=== PATIENT | male | born 1955 | race Caucasian/White ===

== ENCOUNTER 2018-03-02 10:54 | Inpatient (IN) | payer MEDICARE ==
--- NOTE | 2018-03-02 11:02 | ED Physician Chart ---
ED Chief Complaint/HPI - Patient Information Date Seen:: 03/02/18 Time Seen:: 10:40 Chief Complaint:: Poor Oral Intake History of Present Illness:: onset x 3 days of poor oral intake and failure to thrive; no report of trauma, H /As, S/T, neck pain, C/P, SOB, Abd. Pain, A/N/V/D/C, fever, chills, or urinary s /s Historian:: Patient, Family Member Review:: Nurse's Note Reviewed ED Review of Systems - Review of Systems General/Constitutional: No fever, No chills, No weight loss, Weakness, No diaphoresis, No edema, No loss of appetite Skin: No skin lesions, No rash, No bruising Head: No headache, No light-headedness Eyes: No loss of vision, No pain, No diplopia ENT: No earache, No nasal drainage, No sore throat, No tinnitus Neck: No neck pain, No swelling, No thyromegaly, No stiffness, No mass noted Cardio Vascular: No chest pain, No palpitations, No PND, No orthopnea, No edema Pulmonary: No SOB, No cough, No sputum, No wheezing GI: No nausea, No vomiting, No diarrhea, No pain, No melena, No hematochezia, No constipation, No hematemesis G/U: No dysuria, No frequency, No hematuria, No nacturia Musculoskeletal: No bone or joint pain, No back pain, No muscle pain Endocrine: No polyuria, No polydipsia Psychiatric: No prior psych history, No depression, No anxiety, No suicidal ideation, No homicidal ideation, No auditory hallucination, No visual hallucination Hematopoietic: No bruising, No lymphadenopathy Allergic/Immuno: No urticaria, No angioedema Neurological: No syncope, No focal symptoms, Weakness, No paresthesia, No headache, No seizure, No dizziness, Confusion, No vertigo ED Past Medical History - Past Medical History Obtainable: Yes Past Medical History: HTN, Dyslipidemia, Arthritis, Dementia Family History: HTN Social History: Non Smoker, No Alcohol, No Drug Use, Surgical History: Appendectomy, Cholecystectomy, other (Head Shunt) Psychiatricy History: Dementia Medication: Reviewed ED Physical Exam - Physical Examination General/Constitutional: Awake, Well-developed, well-nourished, Alert, No distress, GCS 15, Non-toxic appearing, Ambulatory Head: Atraumatic Eyes: Lids, conjuctiva normal, PERRL, EOMI Skin: Nl inspection, No rash, No skin lesions, No ecchymosis, No lymphadenopathy Other Skin comments:: Poor Turgor with dry MM ENMT: External ears, nose nl, TM canals nl, Nasal exam nl, Lips, teeth, gums nl , Oropharynx nl, Tonsils nl Neck: Nontender, Full ROM w/o pain, No JVD, No nuchal rigidity, No bruit, No mass, No stridor Respiratory: Nl effort/Exclusion, Clear to Auscultation, No Wheeze/Rhonchi/Rales Cardio Vascular: RRR, No murmur, gallop, rubs, NL S1 S2, Carotid/Femoral/Distal pulses equal bilaterally GI: No tenderness/rebounding/guarding, No organomegaly, No hernia, Normal BS's, Nondistended, No mass/bruits, No McBurney tenderness : No CVA tenderness Extremities: No tenderness or effusion, Full ROM, normal strength in all extremities, No edema, Normal digits & nails Neuro/Psych: DTR's symmetric, Normal sensory exam, Normal motor strength, Judgement/insight normal, Mood normal, Normal gait, No focal deficits Other Neuro/Psych comments:: Disoriented and confused Misc: Normal back, No paraspinal tenderness ED Labs/Radiology/EKG Results - Lab Results Comments:: unremarkable - Radiology Results Comments:: CXR: NAD - EKG Interpretations EKG Time:: 11:09 Rate & Rhythm: 51; SB Comments:: non-specific st-t changes ED Septic Shock - . Is Septic Shock (SBP<90, OR Lactate>4 mmol\L) present?: No ED Reassessment (Disposition) - Reassessment Reassessment Condition:: Improved - Diagnosis Diagnosis:: Dx: Poor Oral Intake; Failure to Thrive; Dementia; Dehydration; Alzheimer's Disease; Bradycardia - Aftercare/Follow up Instructions Aftercare/Follow-Up Instructions:: Counseled pt regarding lab results/diagnosis & need follow up, Counseled pt & family regarding lab results/diagnosis & need follow up - Patient Disposition Discharge/Transfer:: Acute Care w/in this hosp Accepting Physician:: Dr. Navarro Time Called:: 1300 Time Responded:: 13:00 Admitted to:: Med/Surg Spoke to:: Dr. Navarro Admitting Medical Physician:: Dr. Navarro Condition at Disposition:: Stable, Improved
[2018-03-02] MEDS ORDERED: Sodium Chloride 0.9% 1,000 ML IV ONE (11:03)
[2018-03-02 11:31] LABS: EOSINOPHILE ABSOLUTE 0.1 Th/cmm (0.1-0.4); HEMATOCRIT 38.4 % (41.0-60); HEMOGLOBIN 13.3 gm/dL (12-16); LYMPHOCYTE ABSOLUTE 1.1 Th/cmm (1.5-3.0); MEAN CELL VOLUME 95.6 fl (80-99); MEAN CORPUSCULAR HEMOGLOBIN 33.1 pg (26.0-30.0); MEAN CORPUSCULAR HGB CONC 34.6 pg (28.0-36.0); MEAN PLATELET VOLUME 9.2 fl; MONOCYTE ABSOLUTE 0.7 Th/cmm (0.3-1.0); NEUTROPHILE ABSOLUTE 2.7 Th/cmm (1.8-8.0); PLATELET COUNT 175 Th/cmm (150-400); RED BLOOD COUNT 4.02 Mil/cmm (4.30-5.70); RED CELL DISTRIBUTION WIDTH 11.4 % (11.5-20.0); WHITE BLOOD COUNT 4.6 Th/cmm (4.8-10.8)
[2018-03-02 11:33] LABS: % LYMPHOCYTES 23.7 % (20.0-50.0); % MONOCYTES 15.2 % (2.0-10.0); % NEUTROPHILS 58.8 % (40.0-80.0)
[2018-03-02 11:40] LABS: INR 1.17 (0.5-1.4); PROTHROMBIN TIME (TEST) 12.3 SECONDS (9.5-11.5)
[2018-03-02 11:46] LABS: ALBUMIN 3.1 gm/dL (4.2-5.5); ALKALINE PHOSPHATASE 59 U/L (34-104); ANION GAP 9.4 (7.0-16.0); BILIRUBIN,TOTAL 0.9 mg/dL (0.3-1.0); BUN - UREA NITROGEN 12 mg/dL (7-25); CALCIUM SERUM 8.9 mg/dL (8.6-10.3); CARBON DIOXIDE 28.6 mEq/L (21.0-31.0); CHLORIDE 104 mEq/L (98-107); CREATININE - SERUM 0.9 mg/dL (0.7-1.3); CREATININE KINASE 31 U/L (30-223); GFR AFRICAN-AMERICAN > 60.0 ml/min (>90); GFR NON AFRICAN-AMERICAN > 60.0 ml/min; GLUCOSE 107 mg/dL (70-105); SGOT 15 U/L (13-39); SGPT/ALT 15 U/L (7-52); SODIUM SERUM 138 mEq/L (136-145); TOTAL PROTEIN,SERUM 6.1 gm/dL (6.0-8.3)
[2018-03-02 11:48] LABS: TROP I < 0.01 ng/mL (0.01-0.05)
--- NOTE | 2018-03-02 12:08 | Diagnostic Imaging Report ---
CHEST X-RAY: AP view INDICATION: pain COMPARISON: None FINDINGS: Right-sided shunt catheter is noted. Chronic interstitial lung changes are noted with suboptimal lung volumes. There is no focal consolidation or pleural effusions The heart is normal in size. Degenerative changes of the spine are noted. IMPRESSION: Chronic interstitial lung changes an suboptimal lung volumes. No focal consolidation identified.
[2018-03-02 12:26] VITALS: BP 00/00
[2018-03-02] MEDS: Sodium Chloride 0.45% 1,000 ML IV SCH (17:04)
--- NOTE | 2018-03-02 21:18 | History & Physical ---
ADMIT DATE: 03/02/2018 HISTORY OF PRESENT ILLNESS: Apparently, this patient has come in because of history of decreased appetite, not been eating and also the patient complaining of cough and shortness of breath. The patient is known to have history of hypertension, no history of diabetes, and complains of unable to eat. All the history was obtained through the patient and the family member. No fever, no chills, no rigors, no headache, no dysuria. The patient is dizzy. The patient complains of decreased memory. PAST MEDICAL HISTORY: Including hypertension, arthritis, dementia, and hyperlipidemia. PHYSICAL EXAMINATION: HEAD: Normal. ENT: Normal. GENERAL: The patient is confused. NECK: Supple, nontender. LUNGS: Clear. CARDIOVASCULAR SYSTEM: S1, S2 heard. ABDOMEN: Soft. Bowel sounds are heard. CENTRAL NERVOUS SYSTEM: Grossly disoriented and confused. DIAGNOSES: Toxic metabolic encephalopathy, decreased sensorium, rule out cerebrovascular accident, history of poor appetite, failure to thrive, history of hypertension, history of dementia, status post cholecystectomy, appendectomy. PLAN: The patient will be admitted. I will have a full complete neurological workup as well as GI workup. I will follow the patient. [facility]# [id number]
[2018-03-02] MEDS: cefTRIAXone 1 GM in Sodium Chloride 0.9% 50 ML IV SCH (22:15)
[2018-03-03 05:32] LABS: EOSINOPHILE ABSOLUTE 0.1 Th/cmm (0.1-0.4); HEMATOCRIT 39.5 % (41.0-60); HEMOGLOBIN 13.4 gm/dL (12-16); MANUAL DIFF REQUIRED? YES; MEAN CELL VOLUME 94.9 fl (80-99); MEAN CORPUSCULAR HEMOGLOBIN 32.1 pg (26.0-30.0); MEAN CORPUSCULAR HGB CONC 33.8 pg (28.0-36.0); MEAN PLATELET VOLUME 9.9 fl; MONOCYTE ABSOLUTE 1.1 Th/cmm (0.3-1.0); NEUTROPHILE ABSOLUTE 3.7 Th/cmm (1.8-8.0); PLATELET COUNT 187 Th/cmm (150-400); RED BLOOD COUNT 4.17 Mil/cmm (4.30-5.70); RED CELL DISTRIBUTION WIDTH 11.4 % (11.5-20.0); WHITE BLOOD COUNT 5.9 Th/cmm (4.8-10.8)
[2018-03-03 05:52] LABS: ANION GAP 9.5 (7.0-16.0); BUN - UREA NITROGEN 14 mg/dL (7-25); CARBON DIOXIDE 28.4 mEq/L (21.0-31.0); CHLORIDE 105 mEq/L (98-107); CREATININE - SERUM 0.9 mg/dL (0.7-1.3); GFR AFRICAN-AMERICAN > 60.0 ml/min (>90); GFR NON AFRICAN-AMERICAN > 60.0 ml/min; GLUCOSE 90 mg/dL (70-105); POTASSIUM SERUM 3.9 mEq/L (3.5-5.1); SODIUM SERUM 139 mEq/L (136-145)
[2018-03-03 07:44] LABS: BAND NEUTROPHILE 5 % (0-10); EOSINOPHIL 1 % (0-5); LYMPHOCYTE 20 % (20-50); MONOCYTE 8 % (2-10); NEUTROPHILS 66 % (40-80); TOTAL CELLS COUNTED 100
--- NOTE | 2018-03-03 08:42 | Diagnostic Imaging Report ---
CHEST X-RAY: AP view INDICATION: pain COMPARISON: None FINDINGS: Right-sided FLOSSER shunt is noted. Slight increase hazy left mid lung markings are noted. No focal consolidation or effusions. The heart size is normal. IMPRESSION: Slight increase hazy left mid lung markings which may be chronic. Faint infiltrate is less likely.
--- NOTE | 2018-03-03 10:09 | History & Physical ---
ADMIT DATE: 03/02/2018 PHYSICIAN REQUESTING CONSULTATION: Dr. Ramon Crespo. REASON FOR CONSULTATION: Depression and anxiety. HISTORY OF PRESENT ILLNESS: This patient is a 63-year-old male, , living with his family. Information obtained by directly interviewing the patient as well as reviewing the admission papers. JUSTIFICATION FOR HOSPITALIZATION: The patient is admitted here on a voluntary basis for failure to thrive and Staff was spoken to. The patient is interviewed. The patient is hard of hearing and also has been having vision problems. The patient has been having difficult time to cope with the stress and is not able to provide much of information. The patient is constantly asking for the staff to stay by and is noted to be very clingy. The patient is also reported to have problems with his memory, currently on Aricept and Namenda. PAST PSYCHIATRIC HISTORY: Details are not known. MEDICAL HISTORY: The patient is reported to have hypertension, arthritis, and hyperlipidemia. PHYSICAL OR SEXUAL ABUSE HISTORY: None. LEGAL PROBLEMS: None at this time. STRENGTHS AND ASSETS: The patient is motivated. MENTAL EXAMINATION: The patient is a 63-year-old thin built, superficially cooperative. Eye contact is poor. Mood is noted to be depressed. Affect is constricted. The patient's coping skills are noted to be very poor. The patient has been having difficult time to cope with the stress. The patient is clingy and has been wanting the staff to be there all the time. The patient is extremely anxious at this time. The patient is alert and aware that she is in the hospital. Short and long-term are noted to be impaired. DIAGNOSTIC IMPRESSION: 1. Depressive disorder, not otherwise specified. 2. Dementia by history. PLAN: To start the patient on low dose of Lexapro and Ativan and follow the patient with the supportive therapy. Thank you Dr. Navarro for allowing me to participate in the care of the patient. [facility]# [id number]
[2018-03-03] MEDS: Sodium Chloride 0.45% 1,000 ML IV SCH (11:28)
--- NOTE | 2018-03-03 15:11 | Consultation ---
Consult Note - Consult Note Service Date: 03/03/18 Referring Physician: Dorcas Navarro Consult Note: PHYSICIAN Consultation Note: Date of Admission: 03/02/18 Purpose of Consultation: Fevers. Chief Complaint: Patient JESSEE SAWANT was admitted to location Medical/Surgical Unit I with FAILURE TO THRIVE. History of Present Illness: Patient is 63 with a past history of hypertension, osteoarthritis, hyperlipidemia, dementia Was brought to the ER for loss of appetite and feeling very weak. On initial evaluation, his temperature 98.5F. 100.5F, and WBC count was 4600. Blood culture remains negative, chest x-ray showed chronic changes, cannot rule out Infiltrate. Urinalysis and urine culture are pending. Rocephin was started. ID consult was called for antibiotic management as patient have fevers. Patient has a heavy cough. Patient will speak to be got his phlegm. Past Medical History: hypertension, osteoarthritis, hyperlipidemia, dementia Diagnoses HYPERLIPIDEMIA, UNSPECIFIED (03/02/18) UNSPECIFIED DEMENTIA WITHOUT BEHAVIORAL DISTURBANCE (03/02/18) TOXIC ENCEPHALOPATHY (03/02/18) ESSENTIAL (PRIMARY) HYPERTENSION (03/02/18) UNSPECIFIED OSTEOARTHRITIS, UNSPECIFIED SITE (03/02/18) ADULT FAILURE TO THRIVE (03/02/18) Allergies Allergy/AdvReac Type Severity Reaction Status Date / Time acetaminophen [From [place]] Allergy Verified 03/02/18 12:22 hydrocodone [From [place]] Allergy Verified 03/02/18 12:22 Vital Signs Temp 99.8 F 03/03/18 11:35 Pulse 68 03/03/18 11:35 Resp 18 03/03/18 11:35 BP 123/71 03/03/18 08:42 Pulse Ox 100 03/03/18 11:35 Intake & Output 03/02/18 03/03/18 03/03/18 18:59 06:59 18:59 Intake Total 150 722.5 Balance 150 722.5 Weight (lbs) 80.377 kg Intake: Intake, IV Amount 50 722.5 Sodium Chloride 0.45% 1, 722.5 000 ml @ 50 mls/hr IV . Q20H [facility] Rx#:[id number] cefTRIAXone 1 gm In 50 Sodium Chloride 0.9% 50 ml @ 100 mls/hr IV Q24HR [facility] Rx#:[id number] Oral 100 Other: # Voids 2 # Bowel Movements 0 Stool Characteristics Formed Weight Source [facility] Laboratory Results - last 24 hr 03/03/18 03/03/18 04:35 04:35 WBC 5.9 RBC 4.17 L Hgb 13.4 Hct 39.5 L MCV 94.9 MCH 32.1 H MCHC Differential 33.8 RDW 11.4 L Plt Count 187 MPV 9.9 Band Neutrophils % 5 Neutrophils (Manual) 66 Lymphocytes 20 Monocytes 8 Eosinophils 1 Sodium 139 Potassium 3.9 Chloride 105 Carbon Dioxide 28.4 Anion Gap 9.5 BUN 14 Creatinine 0.9 Est GFR ( Amer) > 60.0 Est GFR (Non-Af Amer) > 60.0 BUN/Creatinine Ratio 15.6 Glucose 90 Calcium 9.0 Home Medication Medication Instructions Recorded Type Acetaminophen [Tylenol] 650 mg PO Q4HR PRN 03/02/18 History Divalproex Sodium [Depakote] 1,000 mg PO HS 03/02/18 History Donepezil HCl [Aricept] 10 mg PO HS 03/02/18 History Loratadine [Claritin] 10 mg PO DAILY PRN 03/02/18 History Memantine [Namenda] 5 mg PO BID 03/02/18 History Current Medications Generic Name Dose Route Start Last Admin Trade Name Freq PRN Reason Stop Dose Admin Divalproex Sodium 1,000 mg 03/02/18 21:00 03/02/18 22:[address] PO 05/01/18 20:59 1,000 mg HS [facility] Administration Protocol Donepezil HCl 10 mg 03/02/18 21:00 03/02/18 22:16 Aricept PO 05/01/18 20:59 10 mg HS [facility] Administration Escitalopram Oxalate 5 mg 03/04/18 09:00 Lexapro PO 05/03/18 08:59 DAILY [facility] Protocol Sodium Chloride 1,000 mls @ 50 mls/hr 03/02/18 15:15 03/03/18 11:28 Nacl 0.45% IV 05/01/18 15:14 Not Given .Q20H [facility] Ceftriaxone Sodium 1 gm/ 50 mls @ 100 mls/hr 03/02/18 21:00 03/02/18 22:45 Sodium Chloride IV 05/01/18 20:59 Infused Q24HR [facility] Infusion Ibuprofen 400 mg 03/02/18 20:49 03/02/18 22:16 Motrin PO 05/01/18 20:48 400 mg Q6H PRN Administration mild pain or fever Loratadine 10 mg 03/02/18 20:18 Claritin PO 05/01/18 20:17 DAILY PRN ALLERGIES Lorazepam 0.5 mg 03/03/18 09:39 03/03/18 10:09 Ativan PO 05/02/18 09:38 0.5 mg Q6HR PRN Administration Anxiety Protocol Memantine 10 mg 03/03/18 09:38 Namenda PO 05/02/18 09:37 BID [facility] Review of Systems: A 12 point ROS was reviewed with the pertinent positive and negatives noted in the HPI. Social History Smoking Status Smoker, status unknown Family Medical History Noncontributory. Physical Exam: General: Comfortable not in acute distress. Cachectic. HEENT: Head:, Normocephalic atraumatic. Oral cavity: Dry and pink. Facial. Eyes: And dry eyes. No erythema. No pallor. No icterus Neck: Supple, no JVD. No use of accessory muscles. Cardio: S1 and S2 are within normal limits regular rhythm. Respiratory: Vesicular breath sounds present. Occasional crackles. Abdominal: Soft, nontender, nondistended bowel sounds present. Genital/Urinary: Deferred. Extremities: No cyanosis, no clubbing, no edema. Neurological: Alert and awake. Able to communicate. But forgetful. Assessment: 1. Fever. 2. Pneumonia 3. Dementia 4. Hypertension. 5. Diabetes mellitus type 2. Plan: Will continue Rocephin at this time and monitor. Follow up sepsis workup. Signed, Barrett Leal M.D. [id number]
[2018-03-03 16:22] LABS: URINE MICROSCOPIC INDICATED? YES; URINE SOURCE MIDSTREAM
[2018-03-03 16:26] LABS: URINE BILIRUBIN NEGATIVE (NEGATIVE); URINE BLOOD NEGATIVE (NEGATIVE); URINE GLUCOSE (UA) NEGATIVE (NEGATIVE); URINE KETONE NEGATIVE (NEGATIVE); URINE LEUKOCYTE ESTERASE NEGATIVE (NEGATIVE); URINE NITRATE NEGATIVE (NEGATIVE); URINE PH 8.5 (4.6 - 8.0); URINE PROTEIN NEGATIVE (NEGATIVE)
[2018-03-03 16:33] LABS: URINE COLOR YELLOW
[2018-03-03 16:34] LABS: URINE AMORPHOUS SEDIMENT MANY PHOSPHATES (NONE SEEN); URINE BACTERIA NONE SEEN /hpf (NONE SEEN); URINE CLARITY HAZY (CLEAR); URINE EPITHELIAL CELLS RARE /lpf (FEW); URINE RBC 0-2 /hpf (0-5); URINE WBC 0-2 /hpf (0-5)
[2018-03-03] MEDS: cefTRIAXone 1 GM in Sodium Chloride 0.9% 50 ML IV SCH (20:21)
--- NOTE | 2018-03-03 20:25 | Internal Medicine Prog Note ---
Internal Medicine Subjective - Subjective Service Date: 03/03/18 Patient seen and examined:: with staff Patient is:: awake Per staff patient has:: refusing care Internal Medicine Objective - Results Result Diagrams: 03/03/18 04:35 03/03/18 04:35 Recent Labs: Laboratory Last Values WBC 5.9 Th/cmm (4.8-10.8) 03/03/18 04:35 RBC 4.17 Mil/cmm (4.30-5.70) L 03/03/18 04:35 Hgb 13.4 gm/dL (12-16) 03/03/18 04:35 Hct 39.5 % (41.0-60) L 03/03/18 04:35 MCV 94.9 fl (80-99) 03/03/18 04:35 MCH 32.1 pg (26.0-30.0) H 03/03/18 04:35 MCHC Differential 33.8 pg (28.0-36.0) 03/03/18 04:35 RDW 11.4 % (11.5-20.0) L 03/03/18 04:35 Plt Count 187 Th/cmm (150-400) 03/03/18 04:35 MPV 9.9 fl 03/03/18 04:35 Neutrophils % 58.8 % (40.0-80.0) 03/02/18 11:20 Band Neutrophils % 5 % (0-10) 03/03/18 04:35 Lymphocytes % 23.7 % (20.0-50.0) 03/02/18 11:20 Monocytes % 15.2 % (2.0-10.0) H 03/02/18 11:20 Eosinophils % 2.0 % (0.0-5.0) 03/02/18 11:20 Basophils % 0.0 % (0.0-2.0) 03/02/18 11:20 Neutrophils (Manual) 66 % (40-80) 03/03/18 04:35 Lymphocytes 20 % (20-50) 03/03/18 04:35 Monocytes 8 % (2-10) 03/03/18 04:35 Eosinophils 1 % (0-5) 03/03/18 04:35 PT 12.3 SECONDS (9.5-11.5) H 03/02/18 11:20 INR 1.17 (0.5-1.4) 03/02/18 11:20 PTT (Actin FS) 30.4 SECONDS (26.0-38.0) 03/02/18 11:20 Sodium 139 mEq/L (136-145) 03/03/18 04:35 Potassium 3.9 mEq/L (3.5-5.1) 03/03/18 04:35 Chloride 105 mEq/L (98-107) 03/03/18 04:35 Carbon Dioxide 28.4 mEq/L (21.0-31.0) 03/03/18 04:35 Anion Gap 9.5 (7.0-16.0) 03/03/18 04:35 BUN 14 mg/dL (7-25) 03/03/18 04:35 Creatinine 0.9 mg/dL (0.7-1.3) 03/03/18 04:35 Est GFR ( Amer) > 60.0 ml/min (>90) 03/03/18 04:35 Est GFR (Non-Af Amer) > 60.0 ml/min 03/03/18 04:35 BUN/Creatinine Ratio 15.6 03/03/18 04:35 Glucose 90 mg/dL (70-105) 03/03/18 04:35 Whole Bld Lactic Acid 0.97 mmol/L (0.60-1.99) 03/02/18 11:20 Calcium 9.0 mg/dL (8.6-10.3) 03/03/18 04:35 Total Bilirubin 0.9 mg/dL (0.3-1.0) 03/02/18 11:20 AST 15 U/L (13-39) 03/02/18 11:20 ALT 15 U/L (7-52) 03/02/18 11:20 Alkaline Phosphatase 59 U/L (34-104) 03/02/18 11:20 Creatine Kinase 31 U/L (30-223) 03/02/18 11:20 Troponin I < 0.01 ng/mL (0.01-0.05) L 03/02/18 11:20 Total Protein 6.1 gm/dL (6.0-8.3) 03/02/18 11:20 Albumin 3.1 gm/dL (4.2-5.5) L 03/02/18 11:20 Globulin 3.0 gm/dL 03/02/18 11:20 Albumin/Globulin Ratio 1.0 (1.0-1.8) 03/02/18 11:20 Urine Source [place] 03/03/18 15:55 Urine Color YELLOW 03/03/18 15:55 Urine Clarity HAZY (CLEAR) 03/03/18 15:55 Urine pH 8.5 (4.6 - 8.0) 03/03/18 15:55 Ur Specific [place] 1.010 (1.005-1.030) 03/03/18 15:55 Urine Protein NEGATIVE mg/dL (NEGATIVE) 03/03/18 15:55 Urine Glucose (UA) NEGATIVE mg/dL (NEGATIVE) 03/03/18 15:55 Urine Ketones NEGATIVE mg/dL (NEGATIVE) 03/03/18 15:55 Urine Blood NEGATIVE (NEGATIVE) 03/03/18 15:55 Urine Nitrate NEGATIVE (NEGATIVE) 03/03/18 15:55 Urine Bilirubin NEGATIVE (NEGATIVE) 03/03/18 15:55 Urine Urobilinogen 4.0 E.U./dL (0.2 - 1.0) H 03/03/18 15:55 Ur Leukocyte Esterase NEGATIVE (NEGATIVE) 03/03/18 15:55 Urine RBC 0-2 /hpf (0-5) H 03/03/18 15:55 Urine WBC 0-2 /hpf (0-5) 03/03/18 15:55 Ur Epithelial Cells RARE /lpf (FEW) 03/03/18 15:55 Amorphous Sediment MANY PHOSPHATES (NONE SEEN) 03/03/18 15:55 Urine Bacteria NONE SEEN /hpf (NONE SEEN) 03/03/18 15:55 Valproic Acid 46.2 ug/mL (50.0-100.0) L 03/02/18 11:20 - Physical Exam Vitals and I&O: Vital Signs Temp 98.7 F 03/03/18 15:51 Pulse 61 03/03/18 15:51 Resp 16 03/03/18 15:51 BP 108/69 03/03/18 15:51 Pulse Ox 99 03/03/18 15:51 Intake & Output 03/03/18 03/03/18 03/04/18 06:59 18:59 06:59 Intake Total 150 1322.5 Output Total 350 Balance 150 972.5 Weight (lbs) 80.377 kg 80.286 kg Intake: Intake, IV Amount 50 722.5 Sodium Chloride 0.45% 1, 722.5 000 ml @ 50 mls/hr IV . Q20H [facility] Rx#:[id number] cefTRIAXone 1 gm In 50 Sodium Chloride 0.9% 50 ml @ 100 mls/hr IV Q24HR [facility] Rx#:[id number] Oral 100 600 Output: Urine 350 Other: # Voids 2 3 # Bowel Movements 0 1 Stool Characteristics Formed Weight Source Bedscale Bedscale Active Medications: Current Medications Divalproex Sodium (Depakote Dr) 1,000 mg PO HS [facility] PRN Reason: Protocol Stop: 05/01/18 20:59 Last Admin: 03/03/18 20:21 Dose: 1,000 mg Donepezil HCl (Aricept) 10 mg PO [facility] Stop: 05/01/18 20:59 Last Admin: 03/03/18 20:21 Dose: 10 mg Escitalopram Oxalate (Lexapro) 5 mg PO DAILY [facility] PRN Reason: Protocol Stop: 05/03/18 08:59 Sodium Chloride (Nacl 0.45%) 1,000 mls @ 50 mls/hr IV .Q20H [facility] Stop: 05/01/18 15:14 Last Admin: 03/03/18 11:28 Dose: Not Given Ceftriaxone Sodium 1 gm/ (Sodium Chloride) 50 mls @ 100 mls/hr IV Q24HR [facility] Stop: 05/01/18 20:59 Last Admin: 03/03/18 20:21 Dose: 100 mls/hr Ibuprofen (Motrin) 400 mg PO Q6H PRN PRN Reason: mild pain or fever Stop: 05/01/18 20:48 Last Admin: 03/02/18 22:16 Dose: 400 mg Loratadine (Claritin) 10 mg PO DAILY PRN PRN Reason: ALLERGIES Stop: 05/01/18 20:17 Lorazepam (Ativan) 0.5 mg PO Q6HR PRN; Protocol PRN Reason: Anxiety Stop: 05/02/18 09:38 Last Admin: 03/03/18 19:01 Dose: 0.5 mg Memantine (Namenda) 10 mg PO BID [facility] Stop: 05/02/18 09:37 Last Admin: 03/03/18 16:26 Dose: 10 mg General: alert HEENT: NC/AT Neck: Supple Abdomen: soft, non-tender Neurological: no change Internal Medicine Assmt/Plan - Assessment Assessment: toxic metabolic encephalopathy decreased sensorium 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 poor oral intake htn arthritis dementia hyperlipidemia - Plan Plan: ed case manager to arrange snf monitor i+o cpm Nutritional Asmnt/Malnutr-PDOC - Dietary Evaluation Malnutrition Findings (Please click <Entered> for more info): Nutritional Asmnt/Malnutrition Start: 03/03/18 10: 29 Text: Status: Complete Freq: Document 03/03/18 10:29 LCHENG (Rec: 03/03/18 10:36 LCHENG [email or web address]) Nutritional Asmnt/Malnutrition Patient General Information Nutritional Screening High Risk Consult Diagnosis FTT Pertinent Medical Hx/Surgical Hx HTN, arthritis, dementia, hyperlipidemia Subjective Information Nutrition consult for lactose intolerant and gluten sensitivity. Per H&P, pt had decreased appetite, not been eating. Pt seen resting in bed at time of visit, blind and hard of hearing noted. at bedside. Per , pt consumed 90% of breakfast this morning. Food preferenced provided. Pt has lactose intolerance and very sensitive to gluten. Pt is ok to have cheese, regular bread, soy milk per . Current Diet Order/ Nutrition Support regular Pertinent Medications nacl 0.45% Pertinent Labs 03/03 nutrition labs WNL 03/02 glucose 107 Nutritional Hx/Data Height 1.88 m Height (Calculated Centimeters) 188.0 Current Weight (lbs) 80.286 kg Weight (Calculated Kilograms) 80.3 Weight (Calculated Grams) 54352.8 [place] Body Weight 190 Body Mass Index (BMI) 22.7 Weight Status Approriate GI Symptoms GI Symptoms None Last BM none Difficult in: None Skin Integrity/Comment: intact [place] 14 Estimated Nutritional Goals BEE in Kcals: Using Current wt Calories/Kcals/Kg 25-30 Kcals Calculated 1487-4050 Protein: Using Current wt Protein g/k Protein Calculated 80 Fluid: ml 2000-2400ml (1ml/kcal) Nutritional Problem No current Nutrition Prob Problem n/A Malnutrition Alert Protein-Calorie Malnutrition N/A Is there a minimum of two criteria No selected? Query Text:Check all the applicable criteria. A minimum of two criteria are recommended for diagnosis of either severe or non-severe malnutrition. Intervention/Recommendation Comments 1. Recommend gluten free diet and lactose free. RN Alia notified. Food preference updated with editorial clerk. 2. Monitor PO intake, wt, labs and skin integrity 3. F/U as moderate risk in 3-5 days, PO check 03/05 Expected Outcomes/Goals Expected Outcomes/Goals 1. PO intake to meet at least 75% of nutritional needs. 2. Wt stability, skin to remain intact, labs to approach WNL.
[2018-03-04] MEDS: Escitalopram Oxalate 5 mg Tab PO SCH (08:31)
[2018-03-04] MEDS ORDERED: Probiotic Screen MC PRN (11:26)
--- NOTE | 2018-03-04 14:22 | General Progress Note ---
Subjective - Review of Systems Events since last encounter: awake alert in no acute distress Objective - Results Result Diagrams: 03/03/18 04:35 03/03/18 04:35 Recent Labs: Laboratory Last Values WBC 5.9 Th/cmm (4.8-10.8) 03/03/18 04:35 RBC 4.17 Mil/cmm (4.30-5.70) L 03/03/18 04:35 Hgb 13.4 gm/dL (12-16) 03/03/18 04:35 Hct 39.5 % (41.0-60) L 03/03/18 04:35 MCV 94.9 fl (80-99) 03/03/18 04:35 MCH 32.1 pg (26.0-30.0) H 03/03/18 04:35 MCHC Differential 33.8 pg (28.0-36.0) 03/03/18 04:35 RDW 11.4 % (11.5-20.0) L 03/03/18 04:35 Plt Count 187 Th/cmm (150-400) 03/03/18 04:35 MPV 9.9 fl 03/03/18 04:35 Neutrophils % 58.8 % (40.0-80.0) 03/02/18 11:20 Band Neutrophils % 5 % (0-10) 03/03/18 04:35 Lymphocytes % 23.7 % (20.0-50.0) 03/02/18 11:20 Monocytes % 15.2 % (2.0-10.0) H 03/02/18 11:20 Eosinophils % 2.0 % (0.0-5.0) 03/02/18 11:20 Basophils % 0.0 % (0.0-2.0) 03/02/18 11:20 Neutrophils (Manual) 66 % (40-80) 03/03/18 04:35 Lymphocytes 20 % (20-50) 03/03/18 04:35 Monocytes 8 % (2-10) 03/03/18 04:35 Eosinophils 1 % (0-5) 03/03/18 04:35 PT 12.3 SECONDS (9.5-11.5) H 03/02/18 11:20 INR 1.17 (0.5-1.4) 03/02/18 11:20 PTT (Actin FS) 30.4 SECONDS (26.0-38.0) 03/02/18 11:20 Sodium 139 mEq/L (136-145) 03/03/18 04:35 Potassium 3.9 mEq/L (3.5-5.1) 03/03/18 04:35 Chloride 105 mEq/L (98-107) 03/03/18 04:35 Carbon Dioxide 28.4 mEq/L (21.0-31.0) 03/03/18 04:35 Anion Gap 9.5 (7.0-16.0) 03/03/18 04:35 BUN 14 mg/dL (7-25) 03/03/18 04:35 Creatinine 0.9 mg/dL (0.7-1.3) 03/03/18 04:35 Est GFR ( Amer) > 60.0 ml/min (>90) 03/03/18 04:35 Est GFR (Non-Af Amer) > 60.0 ml/min 03/03/18 04:35 BUN/Creatinine Ratio 15.6 03/03/18 04:35 Glucose 90 mg/dL (70-105) 03/03/18 04:35 Whole Bld Lactic Acid 0.97 mmol/L (0.60-1.99) 03/02/18 11:20 Calcium 9.0 mg/dL (8.6-10.3) 03/03/18 04:35 Total Bilirubin 0.9 mg/dL (0.3-1.0) 03/02/18 11:20 AST 15 U/L (13-39) 03/02/18 11:20 ALT 15 U/L (7-52) 03/02/18 11:20 Alkaline Phosphatase 59 U/L (34-104) 03/02/18 11:20 Creatine Kinase 31 U/L (30-223) 03/02/18 11:20 Troponin I < 0.01 ng/mL (0.01-0.05) L 03/02/18 11:20 Total Protein 6.1 gm/dL (6.0-8.3) 03/02/18 11:20 Albumin 3.1 gm/dL (4.2-5.5) L 03/02/18 11:20 Globulin 3.0 gm/dL 03/02/18 11:20 Albumin/Globulin Ratio 1.0 (1.0-1.8) 03/02/18 11:20 Urine Source MIDSTREAM 03/03/18 15:55 Urine Color YELLOW 03/03/18 15:55 Urine Clarity HAZY (CLEAR) 03/03/18 15:55 Urine pH 8.5 (4.6 - 8.0) 03/03/18 15:55 Ur Specific [place] 1.010 (1.005-1.030) 03/03/18 15:55 Urine Protein NEGATIVE mg/dL (NEGATIVE) 03/03/18 15:55 Urine Glucose (UA) NEGATIVE mg/dL (NEGATIVE) 03/03/18 15:55 Urine Ketones NEGATIVE mg/dL (NEGATIVE) 03/03/18 15:55 Urine Blood NEGATIVE (NEGATIVE) 03/03/18 15:55 Urine Nitrate NEGATIVE (NEGATIVE) 03/03/18 15:55 Urine Bilirubin NEGATIVE (NEGATIVE) 03/03/18 15:55 Urine Urobilinogen 4.0 E.U./dL (0.2 - 1.0) H 03/03/18 15:55 Ur Leukocyte Esterase NEGATIVE (NEGATIVE) 03/03/18 15:55 Urine RBC 0-2 /hpf (0-5) H 03/03/18 15:55 Urine WBC 0-2 /hpf (0-5) 03/03/18 15:55 Ur Epithelial Cells RARE /lpf (FEW) 03/03/18 15:55 Amorphous Sediment MANY PHOSPHATES (NONE SEEN) 03/03/18 15:55 Urine Bacteria NONE SEEN /hpf (NONE SEEN) 03/03/18 15:55 Valproic Acid 46.2 ug/mL (50.0-100.0) L 03/02/18 11:20 - Physical Exam Vitals and I&O: Vital Signs Temp 98.0 F 03/04/18 12:00 Pulse 67 03/04/18 12:00 Resp 18 03/04/18 12:00 BP 116/47 03/04/18 12:00 Pulse Ox 98 03/04/18 12:00 Intake & Output 03/03/18 03/04/18 03/04/18 18:59 06:59 18:59 Intake Total 1322.5 200 Output Total 350 Balance 972.5 200 Weight (lbs) 80.286 kg 80.377 kg Intake: Intake, IV Amount 722.5 Sodium Chloride 0.45% 1, 722.5 000 ml @ 50 mls/hr IV . Q20H [facility] Rx#:[id number] Oral 600 200 Output: Urine 350 Other: # Voids 3 2 # Bowel Movements 1 0 Stool Characteristics Formed Weight Source Bedscale Bedscale Active Medications: Current Medications Divalproex Sodium (Depakote Dr) 1,000 mg PO HS JOMAR PRN Reason: Protocol Stop: 05/01/18 20:59 Last Admin: 03/03/18 20:21 Dose: 1,000 mg Donepezil HCl (Aricept) 10 mg PO HS JOMAR Stop: 05/01/18 20:59 Last Admin: 03/03/18 20:21 Dose: 10 mg Escitalopram Oxalate (Lexapro) 5 mg PO DAILY JOMAR PRN Reason: Protocol Stop: 05/03/18 08:59 Last Admin: 03/04/18 08:31 Dose: 5 mg Sodium Chloride (Nacl 0.45%) 1,000 mls @ 50 mls/hr IV .Q20H [facility] Stop: 05/01/18 15:14 Last Admin: 03/03/18 11:28 Dose: Not Given Ceftriaxone Sodium 1 gm/ (Sodium Chloride) 50 mls @ 100 mls/hr IV Q24HR JOMAR Stop: 05/01/18 20:59 Last Admin: 03/03/18 20:21 Dose: 100 mls/hr Ibuprofen (Motrin) 400 mg PO Q6H PRN PRN Reason: mild pain or fever Stop: 05/01/18 20:48 Last Admin: 03/02/18 22:16 Dose: 400 mg Lactobacillus Rhamnosus (Culturelle 15b) 1 each PO DAILY [facility] Stop: 05/03/18 13:59 Loratadine (Claritin) 10 mg PO DAILY PRN PRN Reason: ALLERGIES Stop: 05/01/18 20:17 Lorazepam (Ativan) 0.5 mg PO Q6HR PRN; Protocol PRN Reason: Anxiety Stop: 05/02/18 09:38 Last Admin: 03/04/18 04:17 Dose: 0.5 mg Memantine (Namenda) 10 mg PO BID [facility] Stop: 05/02/18 09:37 Last Admin: 03/04/18 08:31 Dose: 10 mg Miscellaneous (Probiotic Screen) 1 ea MC PRN PRN PRN Reason: PROTOCOL Stop: 05/03/18 11:25 Temazepam (Restoril) 15 mg PO HS PRN; Protocol PRN Reason: Insomnia Stop: 05/02/18 21:16 Assessment/Plan - Problem List Patient Problems: All Active Problems WEAKNESS AND FAILURE TO THRIVE (Acute) - Assessment Assessment: toxic metabolic encephalopathy decreased sensorium 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 poor oral intake htn arthritis dementia hyperlipidemia - Plan Plan: case briefer to arrange snf monitor i+o cpm Nutritional Asmnt/Malnutr-PDOC - Dietary Evaluation Malnutrition Findings (Please click <Entered> for more info): Nutritional Asmnt/Malnutrition Start: 03/03/18 10: 29 Text: Status: Complete Freq: Document 03/03/18 10:29 BEN (Rec: 03/03/18 10:36 ELLEN [email or web address]) Nutritional Asmnt/Malnutrition Patient General Information Nutritional Screening High Risk Consult Diagnosis FTT Pertinent Medical Hx/Surgical Hx HTN, arthritis, dementia, hyperlipidemia Subjective Information Nutrition consult for lactose intolerant and gluten sensitivity. Per H&P, pt had decreased appetite, not been eating. Pt seen resting in bed at time of visit, blind and hard of hearing noted. at bedside. Per , pt consumed 90% of breakfast this morning. Food preferenced provided. Pt has lactose intolerance and very sensitive to gluten. Pt is ok to have cheese, regular bread, soy milk per . Current Diet Order/ Nutrition Support regular Pertinent Medications nacl 0.45% Pertinent Labs 03/03 nutrition labs WNL 03/02 glucose 107 Nutritional Hx/Data Height 1.88 m Height (Calculated Centimeters) 188.0 Current Weight (lbs) 80.286 kg Weight (Calculated Kilograms) 80.3 Weight (Calculated Grams) 38152.8 [place] Body Weight 190 Body Mass Index (BMI) 22.7 Weight Status Approriate GI Symptoms GI Symptoms None Last BM none Difficult in: None Skin Integrity/Comment: intact Curtis 14 Estimated Nutritional Goals BEE in Kcals: Using Current wt Calories/Kcals/Kg 25-30 Kcals Calculated 6515-6664 Protein: Using Current wt Protein g/k Protein Calculated 80 Fluid: ml 2000-2400ml (1ml/kcal) Nutritional Problem No current Nutrition Prob Problem n/A Malnutrition Alert Protein-Calorie Malnutrition N/A Is there a minimum of two criteria No selected? Query Text:Check all the applicable criteria. A minimum of two criteria are recommended for diagnosis of either severe or non-severe malnutrition. Intervention/Recommendation Comments 1. Recommend gluten free diet and lactose free. YOLANDA Rojo notified. Food preference updated with night clerk auditor. 2. Monitor PO intake, wt, labs and skin integrity 3. F/U as moderate risk in 3-5 days, PO check 03/05 Expected Outcomes/Goals Expected Outcomes/Goals 1. PO intake to meet at least 75% of nutritional needs. 2. Wt stability, skin to remain intact, labs to approach WNL.
[2018-03-04] MEDS: Lactobacillus Rhamnosus GG 15 Billion CFU CAP.SPRINK PO SCH (16:51)
[2018-03-04] MEDS: cefTRIAXone 1 GM in Sodium Chloride 0.9% 50 ML IV SCH (21:08)
--- NOTE | 2018-03-04 23:30 | Infectious Disease Prog Note ---
Infectious Disease Subjective - Review of Systems Service Date: 03/04/18 Subjective: There is no new change, Infectious Disease Objective - Results Result Diagrams: 03/05/18 06:16 03/05/18 06:16 Recent Labs: Laboratory Last Values WBC 5.9 Th/cmm (4.8-10.8) 03/03/18 04:35 RBC 4.17 Mil/cmm (4.30-5.70) L 03/03/18 04:35 Hgb 13.4 gm/dL (12-16) 03/03/18 04:35 Hct 39.5 % (41.0-60) L 03/03/18 04:35 MCV 94.9 fl (80-99) 03/03/18 04:35 MCH 32.1 pg (26.0-30.0) H 03/03/18 04:35 MCHC Differential 33.8 pg (28.0-36.0) 03/03/18 04:35 RDW 11.4 % (11.5-20.0) L 03/03/18 04:35 Plt Count 187 Th/cmm (150-400) 03/03/18 04:35 MPV 9.9 fl 03/03/18 04:35 Neutrophils % 58.8 % (40.0-80.0) 03/02/18 11:20 Band Neutrophils % 5 % (0-10) 03/03/18 04:35 Lymphocytes % 23.7 % (20.0-50.0) 03/02/18 11:20 Monocytes % 15.2 % (2.0-10.0) H 03/02/18 11:20 Eosinophils % 2.0 % (0.0-5.0) 03/02/18 11:20 Basophils % 0.0 % (0.0-2.0) 03/02/18 11:20 Neutrophils (Manual) 66 % (40-80) 03/03/18 04:35 Lymphocytes 20 % (20-50) 03/03/18 04:35 Monocytes 8 % (2-10) 03/03/18 04:35 Eosinophils 1 % (0-5) 03/03/18 04:35 PT 12.3 SECONDS (9.5-11.5) H 03/02/18 11:20 INR 1.17 (0.5-1.4) 03/02/18 11:20 PTT (Actin FS) 30.4 SECONDS (26.0-38.0) 03/02/18 11:20 Sodium 139 mEq/L (136-145) 03/03/18 04:35 Potassium 3.9 mEq/L (3.5-5.1) 03/03/18 04:35 Chloride 105 mEq/L (98-107) 03/03/18 04:35 Carbon Dioxide 28.4 mEq/L (21.0-31.0) 03/03/18 04:35 Anion Gap 9.5 (7.0-16.0) 03/03/18 04:35 BUN 14 mg/dL (7-25) 03/03/18 04:35 Creatinine 0.9 mg/dL (0.7-1.3) 03/03/18 04:35 Est GFR ( Amer) > 60.0 ml/min (>90) 03/03/18 04:35 Est GFR (Non-Af Amer) > 60.0 ml/min 03/03/18 04:35 BUN/Creatinine Ratio 15.6 03/03/18 04:35 Glucose 90 mg/dL (70-105) 03/03/18 04:35 Whole Bld Lactic Acid 0.97 mmol/L (0.60-1.99) 03/02/18 11:20 Calcium 9.0 mg/dL (8.6-10.3) 03/03/18 04:35 Total Bilirubin 0.9 mg/dL (0.3-1.0) 03/02/18 11:20 AST 15 U/L (13-39) 03/02/18 11:20 ALT 15 U/L (7-52) 03/02/18 11:20 Alkaline Phosphatase 59 U/L (34-104) 03/02/18 11:20 Creatine Kinase 31 U/L (30-223) 03/02/18 11:20 Troponin I < 0.01 ng/mL (0.01-0.05) L 03/02/18 11:20 Total Protein 6.1 gm/dL (6.0-8.3) 03/02/18 11:20 Albumin 3.1 gm/dL (4.2-5.5) L 03/02/18 11:20 Globulin 3.0 gm/dL 03/02/18 11:20 Albumin/Globulin Ratio 1.0 (1.0-1.8) 03/02/18 11:20 Urine Source MIDSTREAM 03/03/18 15:55 Urine Color YELLOW 03/03/18 15:55 Urine Clarity HAZY (CLEAR) 03/03/18 15:55 Urine pH 8.5 (4.6 - 8.0) 03/03/18 15:55 Ur Specific [place] 1.010 (1.005-1.030) 03/03/18 15:55 Urine Protein NEGATIVE mg/dL (NEGATIVE) 03/03/18 15:55 Urine Glucose (UA) NEGATIVE mg/dL (NEGATIVE) 03/03/18 15:55 Urine Ketones NEGATIVE mg/dL (NEGATIVE) 03/03/18 15:55 Urine Blood NEGATIVE (NEGATIVE) 03/03/18 15:55 Urine Nitrate NEGATIVE (NEGATIVE) 03/03/18 15:55 Urine Bilirubin NEGATIVE (NEGATIVE) 03/03/18 15:55 Urine Urobilinogen 4.0 E.U./dL (0.2 - 1.0) H 03/03/18 15:55 Ur Leukocyte Esterase NEGATIVE (NEGATIVE) 03/03/18 15:55 Urine RBC 0-2 /hpf (0-5) H 03/03/18 15:55 Urine WBC 0-2 /hpf (0-5) 03/03/18 15:55 Ur Epithelial Cells RARE /lpf (FEW) 03/03/18 15:55 Amorphous Sediment MANY PHOSPHATES (NONE SEEN) 03/03/18 15:55 Urine Bacteria NONE SEEN /hpf (NONE SEEN) 03/03/18 15:55 Valproic Acid 46.2 ug/mL (50.0-100.0) L 03/02/18 11:20 - Physical Exam Vitals and I&O: Vital Signs Temp 97.4 F 03/04/18 20:00 Pulse 68 03/04/18 20:00 Resp 18 03/04/18 20:00 BP 122/73 03/04/18 20:00 Pulse Ox 97 03/04/18 20:00 Intake & Output 03/04/18 03/04/18 03/05/18 06:59 18:59 06:59 Intake Total 250 350 Balance 250 350 Weight (lbs) 80.377 kg 80.286 kg Intake: Intake, IV Amount 50 [id number] 1 gm In 50 Sodium Chloride 0.9% 50 ml @ 100 mls/hr IV Q24HR [facility] Rx#:[id number] Oral 200 350 Other: # Voids 2 4 # Bowel Movements 0 1 Weight Source Bedscale Bedscale Active Medications: Current Medications Divalproex Sodium (Depakote Dr) 1,000 mg PO HS JOMAR PRN Reason: Protocol Stop: 05/01/18 20:59 Last Admin: 03/04/18 21:09 Dose: 1,000 mg Donepezil HCl (Aricept) 10 mg PO HS [facility] Stop: 05/01/18 20:59 Last Admin: 03/04/18 21:09 Dose: 10 mg Escitalopram Oxalate (Lexapro) 5 mg PO DAILY JOMAR PRN Reason: Protocol Stop: 05/03/18 08:59 Last Admin: 03/04/18 08:31 Dose: 5 mg Sodium Chloride (Nacl 0.45%) 1,000 mls @ 50 mls/hr IV .Q20H [facility] Stop: 05/01/18 15:14 Last Admin: 03/03/18 11:28 Dose: Not Given Ceftriaxone Sodium 1 gm/ (Sodium Chloride) 50 mls @ 100 mls/hr IV Q24HR [facility] Stop: 05/01/18 20:59 Last Admin: 03/04/18 21:08 Dose: 100 mls/hr Ibuprofen (Motrin) 400 mg PO Q6H PRN PRN Reason: mild pain or fever Stop: 05/01/18 20:48 Last Admin: 03/02/18 22:16 Dose: 400 mg Lactobacillus Rhamnosus (Culturelle 15b) 1 each PO DAILY [facility] Stop: 05/03/18 13:59 Last Admin: 03/04/18 16:51 Dose: 1 each Loratadine (Claritin) 10 mg PO DAILY PRN PRN Reason: ALLERGIES Stop: 05/01/18 20:17 Lorazepam (Ativan) 0.5 mg PO Q6HR PRN; Protocol PRN Reason: Anxiety Stop: 05/02/18 09:38 Last Admin: 03/04/18 04:17 Dose: 0.5 mg Memantine (Namenda) 10 mg PO BID [facility] Stop: 05/02/18 09:37 Last Admin: 03/04/18 16:51 Dose: 10 mg Miscellaneous (Probiotic Screen) 1 ea MC PRN PRN PRN Reason: PROTOCOL Stop: 05/03/18 11:25 Temazepam (Restoril) 15 mg PO HS PRN; Protocol PRN Reason: Insomnia Stop: 05/02/18 21:16 Last Admin: 03/04/18 21:10 Dose: 15 mg General: no acute distress, well developed HEENT: atraumatic, normocephalic, PERRLA Neck: supple, no thyromegaly Cardiovascular: S1S2, regular Lungs: clear to auscultation bilaterally, clear to percussion Abdomen: soft, no tender, no distended Extremities: no cyanosis, no clubbing, no edema Neurological: awake, alert, oriented Skin: intact Infectious Disease Assmt/Plan - Problem List Patient Problems: All Active Problems WEAKNESS AND FAILURE TO THRIVE (Acute) - Assessment Assessment: 1. Fever. 2. Pneumonia 3. Dementia 4. Hypertension. 5. Diabetes mellitus type 2. - Plan Plan: CPM. Abx rocephin. Nutritional Asmnt/Malnutr-PDOC - Dietary Evaluation Malnutrition Findings (Please click <Entered> for more info): Nutritional Asmnt/Malnutrition Start: 03/03/18 10: 29 Text: Status: Complete Freq: Document 03/03/18 10:29 CINTHIA (Rec: 03/03/18 10:36 [email or web address] Nutritional Asmnt/Malnutrition Patient General Information Nutritional Screening High Risk Consult Diagnosis FTT Pertinent Medical Hx/Surgical Hx HTN, arthritis, dementia, hyperlipidemia Subjective Information Nutrition consult for lactose intolerant and gluten sensitivity. Per H&P, pt had decreased appetite, not been eating. Pt seen resting in bed at time of visit, blind and hard of hearing noted. at bedside. Per , pt consumed 90% of breakfast this morning. Food preferenced provided. Pt has lactose intolerance and very sensitive to gluten. Pt is ok to have cheese, regular bread, soy milk per . Current Diet Order/ Nutrition Support regular Pertinent Medications nacl 0.45% Pertinent Labs 03/03 nutrition labs WNL 03/02 glucose 107 Nutritional Hx/Data Height 1.88 m Height (Calculated Centimeters) 188.0 Current Weight (lbs) 80.286 kg Weight (Calculated Kilograms) 80.3 Weight (Calculated Grams) 60781.8 [place] Body Weight 190 Body Mass Index (BMI) 22.7 Weight Status Approriate GI Symptoms GI Symptoms None Last BM none Difficult in: None Skin Integrity/Comment: intact Curtis 14 Estimated Nutritional Goals BEE in Kcals: Using Current wt Calories/Kcals/Kg 25-30 Kcals Calculated 4870-0563 Protein: Using Current wt Protein g/k Protein Calculated 80 Fluid: ml 2000-2400ml (1ml/kcal) Nutritional Problem No current Nutrition Prob Problem n/A Malnutrition Alert Protein-Calorie Malnutrition N/A Is there a minimum of two criteria No selected? Query Text:Check all the applicable criteria. A minimum of two criteria are recommended for diagnosis of either severe or non-severe malnutrition. Intervention/Recommendation Comments 1. Recommend gluten free diet and lactose free. RN Alia notified. Food preference updated with assistant professor of dietetics. 2. Monitor PO intake, wt, labs and skin integrity 3. F/U as moderate risk in 3-5 days, PO check 03/05 Expected Outcomes/Goals Expected Outcomes/Goals 1. PO intake to meet at least 75% of nutritional needs. 2. Wt stability, skin to remain intact, labs to approach WNL.
[2018-03-05] MEDS: Sodium Chloride 0.45% 1,000 ML IV SCH (01:31)
[2018-03-05 07:04] LABS: % BASOPHILS 0.6 % (0.0-2.0); % EOSINOPHILS 5.5 % (0.0-5.0); % LYMPHOCYTES 26.5 % (20.0-50.0); % MONOCYTES 13.5 % (2.0-10.0); % NEUTROPHILS 53.9 % (40.0-80.0); EOSINOPHILE ABSOLUTE 0.3 Th/cmm (0.1-0.4); HEMATOCRIT 41.2 % (41.0-60); HEMOGLOBIN 13.9 gm/dL (12-16); LYMPHOCYTE ABSOLUTE 1.3 Th/cmm (1.5-3.0); MEAN CELL VOLUME 95.3 fl (80-99); MEAN CORPUSCULAR HEMOGLOBIN 32.2 pg (26.0-30.0); MEAN CORPUSCULAR HGB CONC 33.8 pg (28.0-36.0); MONOCYTE ABSOLUTE 0.6 Th/cmm (0.3-1.0); NEUTROPHILE ABSOLUTE 2.6 Th/cmm (1.8-8.0); PLATELET COUNT 252 Th/cmm (150-400); RED BLOOD COUNT 4.32 Mil/cmm (4.30-5.70); RED CELL DISTRIBUTION WIDTH 11.4 % (11.5-20.0); WHITE BLOOD COUNT 4.8 Th/cmm (4.8-10.8)
[2018-03-05 07:12] LABS: ANION GAP 7.9 (7.0-16.0); BUN - UREA NITROGEN 13 mg/dL (7-25); CARBON DIOXIDE 29.7 mEq/L (21.0-31.0); CHLORIDE 105 mEq/L (98-107); CREATININE - SERUM 0.9 mg/dL (0.7-1.3); GFR AFRICAN-AMERICAN > 60.0 ml/min (>90); GFR NON AFRICAN-AMERICAN > 60.0 ml/min; GLUCOSE 96 mg/dL (70-105); POTASSIUM SERUM 3.6 mEq/L (3.5-5.1); SODIUM SERUM 139 mEq/L (136-145)
[2018-03-05] MEDS: Lactobacillus Rhamnosus GG 15 Billion CFU CAP.SPRINK PO SCH (08:54)
[2018-03-05] MEDS: Escitalopram Oxalate 5 mg Tab PO SCH (08:54)
--- NOTE | 2018-03-05 09:47 | General Progress Note ---
Subjective - Review of Systems Events since last encounter: awake in no distress tolerating meds well Objective - Results Result Diagrams: 03/05/18 06:16 03/05/18 06:16 Recent Labs: Laboratory Last Values WBC 4.8 Th/cmm (4.8-10.8) 03/05/18 06:16 RBC 4.32 Mil/cmm (4.30-5.70) 03/05/18 06:16 Hgb 13.9 gm/dL (12-16) 03/05/18 06:16 Hct 41.2 % (41.0-60) 03/05/18 06:16 MCV 95.3 fl (80-99) 03/05/18 06:16 MCH 32.2 pg (26.0-30.0) H 03/05/18 06:16 MCHC Differential 33.8 pg (28.0-36.0) 03/05/18 06:16 RDW 11.4 % (11.5-20.0) L 03/05/18 06:16 Plt Count 252 Th/cmm (150-400) 03/05/18 06:16 MPV 9.0 fl 03/05/18 06:16 Neutrophils % 53.9 % (40.0-80.0) 03/05/18 06:16 Band Neutrophils % 5 % (0-10) 03/03/18 04:35 Lymphocytes % 26.5 % (20.0-50.0) 03/05/18 06:16 Monocytes % 13.5 % (2.0-10.0) H 03/05/18 06:16 Eosinophils % 5.5 % (0.0-5.0) H 03/05/18 06:16 Basophils % 0.6 % (0.0-2.0) 03/05/18 06:16 Neutrophils (Manual) 66 % (40-80) 03/03/18 04:35 Lymphocytes 20 % (20-50) 03/03/18 04:35 Monocytes 8 % (2-10) 03/03/18 04:35 Eosinophils 1 % (0-5) 03/03/18 04:35 PT 12.3 SECONDS (9.5-11.5) H 03/02/18 11:20 INR 1.17 (0.5-1.4) 03/02/18 11:20 PTT (Actin FS) 30.4 SECONDS (26.0-38.0) 03/02/18 11:20 Sodium 139 mEq/L (136-145) 03/05/18 06:16 Potassium 3.6 mEq/L (3.5-5.1) 03/05/18 06:16 Chloride 105 mEq/L (98-107) 03/05/18 06:16 Carbon Dioxide 29.7 mEq/L (21.0-31.0) 03/05/18 06:16 Anion Gap 7.9 (7.0-16.0) 03/05/18 06:16 BUN 13 mg/dL (7-25) 03/05/18 06:16 Creatinine 0.9 mg/dL (0.7-1.3) 03/05/18 06:16 Est GFR ( Amer) > 60.0 ml/min (>90) 03/05/18 06:16 Est GFR (Non-Af Amer) > 60.0 ml/min 03/05/18 06:16 BUN/Creatinine Ratio 14.4 03/05/18 06:16 Glucose 96 mg/dL (70-105) 03/05/18 06:16 Whole Bld Lactic Acid 0.97 mmol/L (0.60-1.99) 03/02/18 11:20 Calcium 9.0 mg/dL (8.6-10.3) 03/05/18 06:16 Total Bilirubin 0.9 mg/dL (0.3-1.0) 03/02/18 11:20 AST 15 U/L (13-39) 03/02/18 11:20 ALT 15 U/L (7-52) 03/02/18 11:20 Alkaline Phosphatase 59 U/L (34-104) 03/02/18 11:20 Creatine Kinase 31 U/L (30-223) 03/02/18 11:20 Troponin I < 0.01 ng/mL (0.01-0.05) L 03/02/18 11:20 Total Protein 6.1 gm/dL (6.0-8.3) 03/02/18 11:20 Albumin 3.1 gm/dL (4.2-5.5) L 03/02/18 11:20 Globulin 3.0 gm/dL 03/02/18 11:20 Albumin/Globulin Ratio 1.0 (1.0-1.8) 03/02/18 11:20 Urine Source MIDSTREAM 03/03/18 15:55 Urine Color YELLOW 03/03/18 15:55 Urine Clarity HAZY (CLEAR) 03/03/18 15:55 Urine pH 8.5 (4.6 - 8.0) 03/03/18 15:55 Ur Specific [place] 1.010 (1.005-1.030) 03/03/18 15:55 Urine Protein NEGATIVE mg/dL (NEGATIVE) 03/03/18 15:55 Urine Glucose (UA) NEGATIVE mg/dL (NEGATIVE) 03/03/18 15:55 Urine Ketones NEGATIVE mg/dL (NEGATIVE) 03/03/18 15:55 Urine Blood NEGATIVE (NEGATIVE) 03/03/18 15:55 Urine Nitrate NEGATIVE (NEGATIVE) 03/03/18 15:55 Urine Bilirubin NEGATIVE (NEGATIVE) 03/03/18 15:55 Urine Urobilinogen 4.0 E.U./dL (0.2 - 1.0) H 03/03/18 15:55 Ur Leukocyte Esterase NEGATIVE (NEGATIVE) 03/03/18 15:55 Urine RBC 0-2 /hpf (0-5) H 03/03/18 15:55 Urine WBC 0-2 /hpf (0-5) 03/03/18 15:55 Ur Epithelial Cells RARE /lpf (FEW) 03/03/18 15:55 Amorphous Sediment MANY PHOSPHATES (NONE SEEN) 03/03/18 15:55 Urine Bacteria NONE SEEN /hpf (NONE SEEN) 03/03/18 15:55 Valproic Acid 46.2 ug/mL (50.0-100.0) L 03/02/18 11:20 - Physical Exam Vitals and I&O: Vital Signs Temp 97.5 F 03/05/18 07:47 Pulse 65 03/05/18 07:47 Resp 19 03/05/18 07:47 BP 128/70 03/05/18 07:47 Pulse Ox 100 03/05/18 07:47 Intake & Output 03/04/18 03/05/18 03/05/18 18:59 06:59 18:59 Intake Total 350 276.667 Balance 350 276.667 Weight (lbs) 80.286 kg 80.286 kg Intake: Intake, IV Amount 36.667 Sodium Chloride 0.45% 1, 0 000 ml @ 50 mls/hr IV . Q20H [facility] Rx#:[id number] cefTRIAXone 1 gm In 36.667 Sodium Chloride 0.9% 50 ml @ 100 mls/hr IV Q24HR [facility] Rx#:[id number] Oral 350 240 Other: # Voids 4 4 # Bowel Movements 1 0 Weight Source Bedscale Bedscale Active Medications: Current Medications Divalproex Sodium (Depakote Dr) 1,000 mg PO HS JOMAR PRN Reason: Protocol Stop: 05/01/18 20:59 Last Admin: 03/04/18 21:09 Dose: 1,000 mg Donepezil HCl (Aricept) 10 mg PO HS JOMAR Stop: 05/01/18 20:59 Last Admin: 03/04/18 21:09 Dose: 10 mg Escitalopram Oxalate (Lexapro) 5 mg PO DAILY JOMAR PRN Reason: Protocol Stop: 05/03/18 08:59 Last Admin: 03/05/18 08:54 Dose: 5 mg Sodium Chloride (Nacl 0.45%) 1,000 mls @ 50 mls/hr IV .Q20H JOMAR Stop: 05/01/18 15:14 Last Admin: 03/05/18 01:31 Dose: 100 mls/hr Ceftriaxone Sodium 1 gm/ (Sodium Chloride) 50 mls @ 100 mls/hr IV Q24HR JOMAR Stop: 05/01/18 20:59 Last Infusion: 03/04/18 21:30 Dose: 0 mls/hr Ibuprofen (Motrin) 400 mg PO Q6H PRN PRN Reason: mild pain or fever Stop: 05/01/18 20:48 Last Admin: 03/02/18 22:16 Dose: 400 mg Lactobacillus Rhamnosus (Culturelle 15b) 1 each PO DAILY JOMAR Stop: 05/03/18 13:59 Last Admin: 03/05/18 08:54 Dose: 1 each Loratadine (Claritin) 10 mg PO DAILY PRN PRN Reason: ALLERGIES Stop: 05/01/18 20:17 Lorazepam (Ativan) 0.5 mg PO Q6HR PRN; Protocol PRN Reason: Anxiety Stop: 05/02/18 09:38 Last Admin: 03/04/18 04:17 Dose: 0.5 mg Memantine (Namenda) 10 mg PO BID JOMAR Stop: 05/02/18 09:37 Last Admin: 03/05/18 08:54 Dose: 10 mg Miscellaneous (Probiotic Screen) 1 ea MC PRN PRN PRN Reason: PROTOCOL Stop: 05/03/18 11:25 Temazepam (Restoril) 15 mg PO HS PRN; Protocol PRN Reason: Insomnia Stop: 05/02/18 21:16 Last Admin: 03/04/18 21:10 Dose: 15 mg Assessment/Plan - Problem List Patient Problems: All Active Problems WEAKNESS AND FAILURE TO THRIVE (Acute) - Assessment Assessment: toxic metabolic encephalopathy decreased sensorium 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 poor oral intake htn arthritis dementia hyperlipidemia - Plan Plan: case planner to arrange snf monitor i+o cpm Nutritional Asmnt/Malnutr-PDOC - Dietary Evaluation Malnutrition Findings (Please click <Entered> for more info): Nutritional Asmnt/Malnutrition Start: 03/03/18 10: 29 Text: Status: Complete Freq: Document 03/03/18 10:29 BEN (Rec: 03/03/18 10:36 [facility] Nutritional Asmnt/Malnutrition Patient General Information Nutritional Screening High Risk Consult Diagnosis FTT Pertinent Medical Hx/Surgical Hx HTN, arthritis, dementia, hyperlipidemia Subjective Information Nutrition consult for lactose intolerant and gluten sensitivity. Per H&P, pt had decreased appetite, not been eating. Pt seen resting in bed at time of visit, blind and hard of hearing noted. at bedside. Per , pt consumed 90% of breakfast this morning. Food preferenced provided. Pt has lactose intolerance and very sensitive to gluten. Pt is ok to have cheese, regular bread, soy milk per . Current Diet Order/ Nutrition Support regular Pertinent Medications nacl 0.45% Pertinent Labs 03/03 nutrition labs WNL 03/02 glucose 107 Nutritional Hx/Data Height 1.88 m Height (Calculated Centimeters) 188.0 Current Weight (lbs) 80.286 kg Weight (Calculated Kilograms) 80.3 Weight (Calculated Grams) 01182.8 [place] Body Weight 190 Body Mass Index (BMI) 22.7 Weight Status Approriate GI Symptoms GI Symptoms None Last BM none Difficult in: None Skin Integrity/Comment: intact Curtis 14 Estimated Nutritional Goals BEE in Kcals: Using Current wt Calories/Kcals/Kg 25-30 Kcals Calculated 1982-5091 Protein: Using Current wt Protein g/k Protein Calculated 80 Fluid: ml 2000-2400ml (1ml/kcal) Nutritional Problem No current Nutrition Prob Problem n/A Malnutrition Alert Protein-Calorie Malnutrition N/A Is there a minimum of two criteria No selected? Query Text:Check all the applicable criteria. A minimum of two criteria are recommended for diagnosis of either severe or non-severe malnutrition. Intervention/Recommendation Comments 1. Recommend gluten free diet and lactose free. YOLANDA Rojo notified. Food preference updated with diet counselor. 2. Monitor PO intake, wt, labs and skin integrity 3. F/U as moderate risk in 3-5 days, PO check 03/05 Expected Outcomes/Goals Expected Outcomes/Goals 1. PO intake to meet at least 75% of nutritional needs. 2. Wt stability, skin to remain intact, labs to approach WNL.
--- NOTE | 2018-03-05 13:24 | Infectious Disease Prog Note ---
Infectious Disease Subjective - Review of Systems Service Date: 03/05/18 Subjective: There is no new change, Infectious Disease Objective - Results Result Diagrams: 03/05/18 06:16 03/05/18 06:16 Recent Labs: Laboratory Last Values WBC 4.8 Th/cmm (4.8-10.8) 03/05/18 06:16 RBC 4.32 Mil/cmm (4.30-5.70) 03/05/18 06:16 Hgb 13.9 gm/dL (12-16) 03/05/18 06:16 Hct 41.2 % (41.0-60) 03/05/18 06:16 MCV 95.3 fl (80-99) 03/05/18 06:16 MCH 32.2 pg (26.0-30.0) H 03/05/18 06:16 MCHC Differential 33.8 pg (28.0-36.0) 03/05/18 06:16 RDW 11.4 % (11.5-20.0) L 03/05/18 06:16 Plt Count 252 Th/cmm (150-400) 03/05/18 06:16 MPV 9.0 fl 03/05/18 06:16 Neutrophils % 53.9 % (40.0-80.0) 03/05/18 06:16 Band Neutrophils % 5 % (0-10) 03/03/18 04:35 Lymphocytes % 26.5 % (20.0-50.0) 03/05/18 06:16 Monocytes % 13.5 % (2.0-10.0) H 03/05/18 06:16 Eosinophils % 5.5 % (0.0-5.0) H 03/05/18 06:16 Basophils % 0.6 % (0.0-2.0) 03/05/18 06:16 Neutrophils (Manual) 66 % (40-80) 03/03/18 04:35 Lymphocytes 20 % (20-50) 03/03/18 04:35 Monocytes 8 % (2-10) 03/03/18 04:35 Eosinophils 1 % (0-5) 03/03/18 04:35 PT 12.3 SECONDS (9.5-11.5) H 03/02/18 11:20 INR 1.17 (0.5-1.4) 03/02/18 11:20 PTT (Actin FS) 30.4 SECONDS (26.0-38.0) 03/02/18 11:20 Sodium 139 mEq/L (136-145) 03/05/18 06:16 Potassium 3.6 mEq/L (3.5-5.1) 03/05/18 06:16 Chloride 105 mEq/L (98-107) 03/05/18 06:16 Carbon Dioxide 29.7 mEq/L (21.0-31.0) 03/05/18 06:16 Anion Gap 7.9 (7.0-16.0) 03/05/18 06:16 BUN 13 mg/dL (7-25) 03/05/18 06:16 Creatinine 0.9 mg/dL (0.7-1.3) 03/05/18 06:16 Est GFR ( Amer) > 60.0 ml/min (>90) 03/05/18 06:16 Est GFR (Non-Af Amer) > 60.0 ml/min 03/05/18 06:16 BUN/Creatinine Ratio 14.4 03/05/18 06:16 Glucose 96 mg/dL (70-105) 03/05/18 06:16 Whole Bld Lactic Acid 0.97 mmol/L (0.60-1.99) 03/02/18 11:20 Calcium 9.0 mg/dL (8.6-10.3) 03/05/18 06:16 Total Bilirubin 0.9 mg/dL (0.3-1.0) 03/02/18 11:20 AST 15 U/L (13-39) 03/02/18 11:20 ALT 15 U/L (7-52) 03/02/18 11:20 Alkaline Phosphatase 59 U/L (34-104) 03/02/18 11:20 Creatine Kinase 31 U/L (30-223) 03/02/18 11:20 Troponin I < 0.01 ng/mL (0.01-0.05) L 03/02/18 11:20 Total Protein 6.1 gm/dL (6.0-8.3) 03/02/18 11:20 Albumin 3.1 gm/dL (4.2-5.5) L 03/02/18 11:20 Globulin 3.0 gm/dL 03/02/18 11:20 Albumin/Globulin Ratio 1.0 (1.0-1.8) 03/02/18 11:20 Urine Source MIDSTREAM 03/03/18 15:55 Urine Color YELLOW 03/03/18 15:55 Urine Clarity HAZY (CLEAR) 03/03/18 15:55 Urine pH 8.5 (4.6 - 8.0) 03/03/18 15:55 Ur Specific [place] 1.010 (1.005-1.030) 03/03/18 15:55 Urine Protein NEGATIVE mg/dL (NEGATIVE) 03/03/18 15:55 Urine Glucose (UA) NEGATIVE mg/dL (NEGATIVE) 03/03/18 15:55 Urine Ketones NEGATIVE mg/dL (NEGATIVE) 03/03/18 15:55 Urine Blood NEGATIVE (NEGATIVE) 03/03/18 15:55 Urine Nitrate NEGATIVE (NEGATIVE) 03/03/18 15:55 Urine Bilirubin NEGATIVE (NEGATIVE) 03/03/18 15:55 Urine Urobilinogen 4.0 E.U./dL (0.2 - 1.0) H 03/03/18 15:55 Ur Leukocyte Esterase NEGATIVE (NEGATIVE) 03/03/18 15:55 Urine RBC 0-2 /hpf (0-5) H 03/03/18 15:55 Urine WBC 0-2 /hpf (0-5) 03/03/18 15:55 Ur Epithelial Cells RARE /lpf (FEW) 03/03/18 15:55 Amorphous Sediment MANY PHOSPHATES (NONE SEEN) 03/03/18 15:55 Urine Bacteria NONE SEEN /hpf (NONE SEEN) 03/03/18 15:55 Valproic Acid 46.2 ug/mL (50.0-100.0) L 03/02/18 11:20 - Physical Exam Vitals and I&O: Vital Signs Temp 98.5 F 03/05/18 12:21 Pulse 69 03/05/18 12:21 Resp 19 03/05/18 12:21 BP 117/81 03/05/18 12:21 Pulse Ox 98 03/05/18 12:21 Intake & Output 03/04/18 03/05/18 03/05/18 18:59 06:59 18:59 Intake Total 350 276.667 200 Balance 350 276.667 200 Weight (lbs) 80.286 kg 80.286 kg 80.286 kg Intake: Intake, IV Amount 36.667 Sodium Chloride 0.45% 1, 0 000 ml @ 50 mls/hr IV . Q20H COUNTS INCLUDE 234 BEDS AT [facility] Rx#:[id number] cefTRIAXone 1 gm In 36.667 Sodium Chloride 0.9% 50 ml @ 100 mls/hr IV Q24HR [facility] Rx#:[id number] Oral 350 240 200 Other: # Voids 4 4 2 # Bowel Movements 1 0 1 Weight Source Bedscale Bedscale Bedscale Active Medications: Current Medications Divalproex Sodium (Depakote Dr) 1,000 mg PO HS JOMAR PRN Reason: Protocol Stop: 05/01/18 20:59 Last Admin: 03/04/18 21:09 Dose: 1,000 mg Donepezil HCl (Aricept) 10 mg PO HS JOMAR Stop: 05/01/18 20:59 Last Admin: 03/04/18 21:09 Dose: 10 mg Escitalopram Oxalate (Lexapro) 5 mg PO DAILY JOMAR PRN Reason: Protocol Stop: 05/03/18 08:59 Last Admin: 03/05/18 08:54 Dose: 5 mg Sodium Chloride (Nacl 0.45%) 1,000 mls @ 50 mls/hr IV .Q20H [facility] Stop: 05/01/18 15:14 Last Admin: 03/05/18 01:31 Dose: 100 mls/hr Ceftriaxone Sodium 1 gm/ (Sodium Chloride) 50 mls @ 100 mls/hr IV Q24HR [facility] Stop: 05/01/18 20:59 Last Infusion: 03/04/18 21:30 Dose: 0 mls/hr Ibuprofen (Motrin) 400 mg PO Q6H PRN PRN Reason: mild pain or fever Stop: 05/01/18 20:48 Last Admin: 03/02/18 22:16 Dose: 400 mg Lactobacillus Rhamnosus (Culturelle 15b) 1 each PO DAILY JOMAR Stop: 05/03/18 13:59 Last Admin: 03/05/18 08:54 Dose: 1 each Loratadine (Claritin) 10 mg PO DAILY PRN PRN Reason: ALLERGIES Stop: 05/01/18 20:17 Lorazepam (Ativan) 0.5 mg PO Q6HR PRN; Protocol PRN Reason: Anxiety Stop: 05/02/18 09:38 Last Admin: 03/04/18 04:17 Dose: 0.5 mg Memantine (Namenda) 10 mg PO BID JOMAR Stop: 05/02/18 09:37 Last Admin: 03/05/18 08:54 Dose: 10 mg Miscellaneous (Probiotic Screen) 1 ea MC PRN PRN PRN Reason: PROTOCOL Stop: 05/03/18 11:25 Temazepam (Restoril) 15 mg PO HS PRN; Protocol PRN Reason: Insomnia Stop: 05/02/18 21:16 Last Admin: 03/04/18 21:10 Dose: 15 mg General: no acute distress, well developed, well nourished HEENT: atraumatic, normocephalic, PERRLA, EOMI, moist mucous membrane Neck: supple, no thyromegaly Cardiovascular: S1S2, regular Lungs: clear to auscultation bilaterally, clear to percussion Abdomen: soft, no tender, no distended, no mass Extremities: no cyanosis, no clubbing, no edema Neurological: awake, alert, oriented Skin: intact Infectious Disease Assmt/Plan - Problem List Patient Problems: All Active Problems WEAKNESS AND FAILURE TO THRIVE (Acute) - Assessment Assessment: 1. Fever. 2. Pneumonia 3. Dementia 4. Hypertension. 5. Diabetes mellitus type 2. - Plan Plan: Change antibiotic: to levaquin 500mg IV daily for 5 days. Nutritional Asmnt/Malnutr-PDOC - Dietary Evaluation Malnutrition Findings (Please click <Entered> for more info): Nutritional Asmnt/Malnutrition Start: 03/03/18 10: 29 Text: Status: Complete Freq: Document 03/03/18 10:29 CINTHIA (Rec: 03/03/18 10:36 [email or web address] Nutritional Asmnt/Malnutrition Patient General Information Nutritional Screening High Risk Consult Diagnosis FTT Pertinent Medical Hx/Surgical Hx HTN, arthritis, dementia, hyperlipidemia Subjective Information Nutrition consult for lactose intolerant and gluten sensitivity. Per H&P, pt had decreased appetite, not been eating. Pt seen resting in bed at time of visit, blind and hard of hearing noted. at bedside. Per , pt consumed 90% of breakfast this morning. Food preferenced provided. Pt has lactose intolerance and very sensitive to gluten. Pt is ok to have cheese, regular bread, soy milk per . Current Diet Order/ Nutrition Support regular Pertinent Medications nacl 0.45% Pertinent Labs 03/03 nutrition labs WNL 03/02 glucose 107 Nutritional Hx/Data Height 1.88 m Height (Calculated Centimeters) 188.0 Current Weight (lbs) 80.286 kg Weight (Calculated Kilograms) 80.3 Weight (Calculated Grams) 59906.8 [place] Body Weight 190 Body Mass Index (BMI) 22.7 Weight Status Approriate GI Symptoms GI Symptoms None Last BM none Difficult in: None Skin Integrity/Comment: intact Curtis 14 Estimated Nutritional Goals BEE in Kcals: Using Current wt Calories/Kcals/Kg 25-30 Kcals Calculated 1369-1954 Protein: Using Current wt Protein g/k Protein Calculated 80 Fluid: ml 2000-2400ml (1ml/kcal) Nutritional Problem No current Nutrition Prob Problem n/A Malnutrition Alert Protein-Calorie Malnutrition N/A Is there a minimum of two criteria No selected? Query Text:Check all the applicable criteria. A minimum of two criteria are recommended for diagnosis of either severe or non-severe malnutrition. Intervention/Recommendation Comments 1. Recommend gluten free diet and lactose free. YOLANDA Rojo notified. Food preference updated with cost report clerk. 2. Monitor PO intake, wt, labs and skin integrity 3. F/U as moderate risk in 3-5 days, PO check 03/05 Expected Outcomes/Goals Expected Outcomes/Goals 1. PO intake to meet at least 75% of nutritional needs. 2. Wt stability, skin to remain intact, labs to approach WNL.
[2018-03-05] MEDS: cefTRIAXone 1 GM in Sodium Chloride 0.9% 50 ML IV SCH (20:05)
--- NOTE | 2018-03-14 07:28 | Discharge Summary ---
DATE OF DISCHARGE: This patient came to the [facility], admitted on 03/02/2018, was discharged on 03/05/2018 and apparently the patient came because of a decreased appetite, not eating and is complaining of increasing shortness of breath and his initial diagnosis was toxic metabolic encephalopathy, history of rule out CVA, history of poor appetite, failure to thrive, history of hypertension, history of dementia, status post cholecystectomy, appendectomy. The patient was admitted and complete workup was done including a neurological evaluation, psychological evaluation and the patient was found to have dementia and the patient was transferred to the retirement in [place]. I will be following this patient. Condition at the time of discharge was stable. [facility]# [id number]
== END 2018-03-05 21:00 | DRG 177 ==
LOC: ER 10:54 → MSI 19:59
PROVIDERS: ADMIT Internal Medicine; ATTEND Internal Medicine
DX: J69.0 Pneumonitis due to inhalation of food and vomit (principal); G92 Toxic encephalopathy; R62.7 Adult failure to thrive; I10 Essential (primary) hypertension; M19.90 Unspecified osteoarthritis, unspecified site; E78.5 Hyperlipidemia, unspecified; E86.0 Dehydration; G30.9 Alzheimer's disease, unspecified; F02.80 Dementia in other diseases classified elsewhere, unspecified severity, without behavioral disturbance, psychotic disturbance, mood disturbance, and anxiety; R00.1 Bradycardia, unspecified; E11.9 Type 2 diabetes mellitus without complications; F41.9 Anxiety disorder, unspecified; F32.9 Major depressive disorder, single episode, unspecified; Z88.1 Allergy status to other antibiotic agents; Z88.5 Allergy status to narcotic agent; Z82.49 Family history of ischemic heart disease and other diseases of the circulatory system; Z90.49 Acquired absence of other specified parts of digestive tract; Z86.73 Personal history of transient ischemic attack (TIA), and cerebral infarction without residual deficits
CPT/HCPCS: 36415-UA; 71045-TC; 80048-TC; 80053-TC; 80164-TC; 81001-TC; 82550-TC; 83605; 84484-TC; 85007-TC; 85025-TC; 85027-TC; 85610-TC; 85730-TC; 93005; 97530; J0696; J7030; J7042; X3904; Z7610